=== PATIENT | female | born 2000 | race African-American/Black ===

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

== ENCOUNTER 2020-09-30 12:57 | Emergency (ER) | payer OTHER ==
[~2020-09-30] VITALS: Ht 160 cm; Wt 51.1 kg
[2020-09-30 13:00] VITALS: BP 134/95
--- NOTE | 2020-09-30 13:39 | PHYS DOC ---
Past History Past Medical History: No Pertinent History (EDVIN MURPHY APRN) Past Surgical History: No Surgical History (EDVIN MURPHY APRN) Smoking: Non-smoker Alcohol Use: None Drug Use: None (EDVIN MURPHY APRN) General Adult EDM: Chief Complaint: MULTIPLE COMPLAINTS HPI: HPI: Patient is a 20-year-old female presents with right knee pain and lower back pain for 2 weeks. Patient states she woke up this morning and the pain was worse. Patient states that pain is increased with ambulation. Patient reports taking Tylenol at 8 AM this morning with no relief. Patient denies known injury. Denies urinary retention or loss of bowel. Denies health history. (EDVIN MURPHY APRN) Review of Systems: Review of Systems: Constitutional: Denies fever or chills Eyes: Denies change in visual acuity HENT: Denies nasal congestion or sore throat Respiratory: Denies cough or shortness of breath Cardiovascular: Denies chest pain or edema GI: Denies abdominal pain, nausea, vomiting, bloody stools or diarrhea : Denies dysuria Musculoskeletal: Reports lower back pain and right knee pain Integument: Denies rash Neurologic: Denies headache, focal weakness or sensory changes Endocrine: Denies polyuria or polydipsia Lymphatic: Denies swollen glands Psychiatric: Denies depression or anxiety (EDVIN MURPHY APRN) Allergies: Allergies: Allergies Coded Allergies Type Severity Reaction Last Updated Verified No Known Drug Allergies 09/30/20 No (EDVIN MURPHY APRN) Physical Exam: PE: Constitutional: Well developed, well nourished, no acute distress, non-toxic appearance. [] HENT: Normocephalic, atraumatic, bilateral external ears normal, oropharynx moist, no oral exudates, nose normal. [] Eyes: PERRLA, EOMI, conjunctiva normal, no discharge. [] Neck: Normal range of motion, no tenderness, supple, no stridor. [] Cardiovascular:Heart rate regular rhythm, no murmur [] Lungs & Thorax: Bilateral breath sounds clear to auscultation [] Abdomen: Bowel sounds normal, soft, no tenderness, no masses, no pulsatile masses. [] Skin: Warm, dry, no erythema, no rash. [] Back: Lower back tenderness, no CVA tenderness. [] Extremities: Right knee tenderness, ROM intact, no edema. [] Neurologic: Alert and oriented X 3, normal motor function, normal sensory function, no focal deficits noted. [] Psychologic: Affect normal, judgement normal, mood normal. [] (EDVIN MURPHY APRN) Current Patient Data: Vital Signs: Vital Signs Date Time Temp Pulse Resp B/P (MAP) Pulse Ox O2 Delivery O2 Flow Rate FiO2 09/30/20 13:00 98.2 71 16 134/95 (108) 100 Room Air (EDVIN MURPHY APRN) EKG: EKG: [] (EDVIN MURPHY APRN) Radiology/Procedures: Radiology/Procedures: []NDICATION: Reason: LOWER BACK PAIN TIMES 2 WEEKS, NO INJURY / Spl. Instructions: / History: COMPARISON: None. IMPRESSION: Lumbar spine: 4 views obtained. No acute fracture or dislocation. There are some air-filled mildly prominent loops of bowel the partially visualized abdomen in a nonspecific pattern. Calcifications in the left hemipelvis commonly from phleboliths unless the patient is having symptoms of urinary tract stone. This measures approximately 3 mm. Electronically signed by: Ronen Jeff MD (09/30/2020 2:22 PM) [id number] Examination: 4 views of the right knee HISTORY: History of left knee pain COMPARISON: None available FINDINGS: The alignment of the knee joint grossly appears unremarkable. There is no acute fracture or dislocation identified. IMPRESSION: No acute osseous findings. Electronically signed by: Earnest Garcia MD (09/30/2020 2:16 PM) [id number] (EDVIN MURPHY APRN) Heart Score: C/O Chest Pain: No Risk Factors: Risk Factors: DM, Current or recent (<one month) smoker, HTN, HLP, family history of CAD, obesity. Risk Scores: Score 0 - 3: 2.5% MACE over next 6 weeks - Discharge Home Score 4 - 6: 20.3% MACE over next 6 weeks - Admit for Clinical Observation Score 7 - 10: 72.7% MACE over next 6 weeks - Early Invasive Strategies (EDVIN MURPHY APRN) Course & Med Decision Making: Course & Med Decision Making Pertinent Labs and Imaging studies reviewed. (See chart for details) [] 06 March presents with right knee pain and lower back pain for 2 weeks. States pain has increased. Denies known injury. X-ray of right knee and lower back ordered to rule out fracture. Toradol given for pain. Patient given a prescription for Flexeril at home. Instructed to take ibuprofen and Tylenol for discomfort. Rice instructions given. Advised patient to follow-up with PCP for further evaluation if pain continues. Patient is appreciative and okay to discharge plan (EDVIN MURPHY APRN) Dragon Disclaimer: Dragon Disclaimer: This electronic medical record was generated, in whole or in part, using a voice recognition dictation system. (EDVIN MURPHY APRN) Attending Co-Sign The patient was seen and interviewed as well as examined at the bedside. The chart was reviewed. The case was discussed. Agree with the plan of care. (ASHOK TY DO) Departure Departure: Impression: Primary Impression: Lower back pain Qualified Codes: M54.5 - Low back pain Additional Impression: Knee pain, right Qualified Codes: M25.561 - Pain in right knee Disposition: HOME / SELF CARE / HOMELESS Condition: STABLE Referrals: PCP,NO (PCP) Patient Instructions: Knee Pain, [id number], RICE - Routine Care for Injuries Additional Instructions: You are seen in the emergency room for lower back pain and right knee pain. X- ray of your back and knee were both negative for any acute fractures. Continue taking ibuprofen at home for discomfort. You can also use ice to the affected area. I will send you home with a muscle relaxer. Please follow-up with your PCP for further evaluation. Return to the emergency room with worsening symptoms or concerns EMERGENCY DEPARTMENT GENERAL DISCHARGE INSTRUCTIONS Thank you for coming to [facility] (ED) today and trusting us with you care. We trust that you had a positivie experience in our Emergency Department. If you wish to speak to the department management, you may call the director at [phone]. YOUR FOLLOW UP INSTRUCTIONS ARE FOLLOWS: 1. Do you have a private Doctor? If you do not have a private doctor, please ask for a resource list of physicians or clinics that may be able to assist you with follow up care. 2. The Emergency Physician has interpreted your x-rays. The X-Ray specialist will also review them. If there is a change in the findings, you will be notified in 48 hours when at all possible. 3. A lab test or culture has been done, your results will be reviewed and you will be notified if you need a change in treatment. ADDITIONAL INSTRUCTIONS AND INFORMATION: 1. Your care today has been supervised by a physician who is specially trained in emergency care. Many problems require more than one evaluation for a complete diagnosis and treatment. We recommend that you schedule your follow up appointment as recommended to ensure complete treatment of you illness or injury. If you are unable to obtain follow up care and continue to have a problem, or if your condition worsens, we recommend that you return to the ED. 2. We are not able to safely determine your condition over the phone nor are we able to give sound medical advice over the phone. For these safety reasons, if you call for medical advice we will ask you to come to the ED for further evaluation. 3. If you have any questions regarding these discharge instructions please call the ED at [phone]. SAFETY INFORMATION: In the interest of safety, wellness, and injury prevention; we encourage you to wear your sealbelt, if you smoke; quite smoking, and we encourage family to use a protective helmet for bicycling and other sporting events that present an increased risk for head injury. IF YOUR SYMPTOMS WORSEN OR NEW SYMPTOMS DEVELOP, OR YOU HAVE CONCERNS ABOUT YOUR CONDITION; OR IF YOUR CONDITION WORSENS WHILE YOU ARE WAITING FOR YOUR FOLLOW UP APPOINTMENT; EITHER CONTACT YOUR PRIMARY CARE DOCTOR, THE PHYSICIAN WHOSE NAME AND NUMBER YOU WERE GIVEN, OR RETURN TO THE ED IMMEDIATELY. Scripts Cyclobenzaprine Hcl (CYCLOBENZAPRINE HCL) 10 Mg Tablet 1 TAB PO TID PRN for PAIN for 10 Days, #30 TAB 0 Refills Prov: EDVIN MURPHY APRN 09/30/20 EDVIN MURPHY APRN Sep 30, 2020 13:39 ASHOK TY DO Oct 01, 2020 06:40
[2020-09-30] MEDS ORDERED: KETOROLAC 15 MG/ML VIAL. IM ONE (13:45)
[2020-09-30 14:18] LABS: BILIRUBIN,URINE NEG (NEG); CLARITY,URINE CLEAR; COLOR,URINE YELLOW; GLUCOSE,URINE NEG (NEG); NITRITE,URINE NEG (NEG)
--- NOTE | 2020-09-30 14:18 | RAD ---
Examination: 4 views of the right knee HISTORY: History of left knee pain COMPARISON: None available FINDINGS: The alignment of the knee joint grossly appears unremarkable. There is no acute fracture or dislocati on identified. IMPRESSION: No acute osseous findings. Electronically signed by: Earnest Garcia MD (09/30/2020 2:16 PM) [id number]
--- NOTE | 2020-09-30 14:25 | RAD ---
INDICATION: Reason: LOWER BACK PAIN TIMES 2 WEEKS, NO INJURY / Spl. Instructions: / History: COMPARISON: None. IMPRESSION: Lumbar spine: 4 views obtained. No acute fracture or dislocation. There are some air-filled mildly pr ominent loops of bowel the partially visualized abdomen in a nonspecific pattern. Calcifications in t he left hemipelvis commonly from phleboliths unless the patient is having symptoms of urinary tract s tone. This measures approximately 3 mm. Electronically signed by: Ronen Jeff MD (09/30/2020 2:22 PM) [id number]
[2020-09-30] MEDS ORDERED: CYCL-331 PO (14:33)
[2020-09-30 14:35] LABS: BACTERIA,URINE 0 /HPF (0-FEW); SQUAMOUS EPITHELIAL CELL,UR MOD /LPF
== END 2020-09-30 14:36 | disposition home or self-care (01) ==
LOC: ER 12:57
DX: M54.5 Low back pain (principal); M25.561 Pain in right knee
CPT/HCPCS: 72100; 73564; 81001; 81025; 87086; 96372; 99284; J1885